=== PATIENT | male | born 1950 | race Hispanic/Latino ===

== ENCOUNTER 2019-05-12 17:54 | Inpatient (IN) | payer OTHER ==
[~2019-05-12] VITALS: Ht 162.6 cm; Wt 71.4 kg
[2019-05-12 21:04] VITALS: BP 162/73
[2019-05-12 21:51] LABS: HEMATOCRIT 40.2 % (42-54); MEAN CORPUSCULAR HEMOGLOBIN 30.2 pg (27.0-33.0); MEAN CORPUSCULAR HGB CONC 33.9 g/dL (32.0-36.0); MEAN CORPUSCULAR VOLUME 89.1 fL (79-99); PLATELET COUNT (AUTO) 189 K/uL (130-400); RED BLOOD CELL COUNT(AUTO) 4.51 MIL/uL (4.50-6.20); RED CELL DISTRIBUTION WIDTH 14.6 % (11.0-15.5); WHITE BLOOD COUNT (AUTO) 8.1 K/uL (4.8-10.8)
[2019-05-12 22:00] LABS: HEMOGLOBIN A1C 7.2 % (4.0-6.0)
[2019-05-12 22:06] LABS: INR 1.07 (0.85-1.15); PARTIAL THROMBOPLASTIN TIME 67.9 SEC (26.3-35.5); PROTHROMBIN TIME 11.2 SEC (9.6-11.6)
[2019-05-12 22:12] LABS: B-TYPE NATRIURETIC PEPTIDE 284 pg/mL (0-100)
[2019-05-12 22:14] LABS: ALBUMIN 3.1 g/dL (3.5-5.0); BILIRUBIN,TOTAL 0.4 mg/dL (0.2-1.0); CREATININE 0.9 mg/dL (0.5-1.5); POTASSIUM 3.8 mmol/L (3.5-5.1); TOTAL PROTEIN, SERUM 6.9 g/dL (6.0-8.3)
[2019-05-12] MEDS ORDERED: GLYB1TAB28 PO (22:30)
[2019-05-12] MEDS ORDERED: METO50TA18 PO (22:30)
[2019-05-12] MEDS ORDERED: ASPI-1005 PO (22:30)
[2019-05-12 22:37] LABS: APPEARANCE,URINE Clear (CLEAR); BILIRUBIN,URINE Negative (NEGATIVE); COLOR,URINE Yellow (YELLOW); GLUCOSE, URINE (UA) 250 mg/dL (NEGATIVE); KETONES,URINE Negative (NEGATIVE); LEUKOCYTE ESTERASE ,URINE Trace (NEGATIVE); NITRATE,URINE Negative (NEGATIVE); OCCULT BLOOD,URINE Negative (NEGATIVE); PH,URINE 6.5 (5.0-8.0); PROTEIN,URINE Negative (NEGATIVE)
[2019-05-12 22:54] LABS: BACTERIA,URINE None Seen /HPF (None Seen); RBC,URINE None Seen /HPF (0-1); SQUAMOUS EPITHELIAL CELL,UR Rare /HPF (0-2); WBC,URINE None Seen /HPF (0-1)
[2019-05-12 23:36] VITALS: BP 183/76
[2019-05-12] MEDS: LACTATED RINGERS 1000ML 1,000 ML IV SCH (23:36)
[2019-05-12] MEDS: NITROGLYCERIN 1GM/1 INCH PACKET TD SCH (23:36)
[2019-05-12] MEDS: CEFTRIAXONE SODIUM 1 GM IVP SCH (23:36)
[2019-05-13] VITALS (7 sets, daily range): BP systolic 117–173; BP diastolic 62–84
[2019-05-13] MEDS ORDERED: HYDRALAZINE HCL 20 MG/ML VIAL IV PRN
[2019-05-13] MEDS ORDERED: HYDRALAZINE HCL 20 MG/ML VIAL ONE (00:03)
[2019-05-13] MEDS ORDERED: GABA-529 PO (02:57)
[2019-05-13] MEDS ORDERED: LISI-613 PO (02:57)
[2019-05-13] MEDS ORDERED: ONDA220I IV (02:57)
[2019-05-13] MEDS ORDERED: PANT40TA25 PO (02:57)
[2019-05-13] MEDS ORDERED: [UNRECOGNIZED DRUG - CODE] IVP (02:57)
[2019-05-13] MEDS ORDERED: ACET-3194 PO (02:57)
[2019-05-13] MEDS: NITROGLYCERIN 1GM/1 INCH PACKET TD SCH ×4 (04:17→22:02)
[2019-05-13] MEDS ORDERED: NITROGLYCERIN 50 MG/D5% WATER 1 BOT ONE (08:52)
[2019-05-13] MEDS ORDERED: ACETAMINOPHEN 325 MG TAB PO PRN (10:30)
[2019-05-13 17:26] LABS: APPEARANCE,URINE CLEAR (CLEAR); BILIRUBIN,URINE NEGATIVE (NEGATIVE); COLOR,URINE YELLOW (YELLOW); GLUCOSE, URINE (UA) >=1000 mg/dL (NEGATIVE); KETONES,URINE NEGATIVE (NEGATIVE); LEUKOCYTE ESTERASE ,URINE NEGATIVE (NEGATIVE); NITRATE,URINE NEGATIVE (NEGATIVE); OCCULT BLOOD,URINE NEGATIVE (NEGATIVE); PH,URINE 6.5 (5.0-8.0); PROTEIN,URINE NEGATIVE (NEGATIVE); UROBILINOGEN,URINE 0.2 mg/dL (0.2-1.0)
[2019-05-13 18:05] LABS: BACTERIA,URINE Rare /HPF (None Seen); WBC,URINE 0-1 /HPF (0-1)
[2019-05-13 18:06] LABS: MUCUS,URINE None Seen LPF (None Seen); SQUAMOUS EPITHELIAL CELL,UR 0-2 /HPF (0-2)
[2019-05-13] MEDS: LACTATED RINGERS 1000ML 1,000 ML IV SCH (19:51)
[2019-05-13] MEDS: CEFTRIAXONE SODIUM 1 GM IVP SCH (22:01)
[2019-05-13] MEDS: INSULIN HUMULIN R 100 UNIT/ML 3ML SQ SCH (22:03)
[2019-05-13] MEDS ORDERED: MAGNESIUM CITRATE 296 ML SOLUTION PO ONE (23:15)
[2019-05-13] MEDS ORDERED: MAGNESIUM CITRATE 296 ML SOLUTION ONE (23:15)
[2019-05-14] VITALS (37 sets, daily range): BP systolic 86–193; BP diastolic 45–94
[2019-05-14] MEDS ORDERED: ONDANSETRON HCL 4 MG/2 ML VIAL ONE (01:59)
[2019-05-14] MEDS ORDERED: ONDANSETRON HCL 4 MG/2 ML VIAL IVP PRN (03:00)
--- NOTE | 2019-05-14 03:00 | NUR ---
Patient note: Patient very upset for not getting Ice chips after being placed on NPO after midnight for CABG procedure, States " I feel like dying". at bedside. Patient also upset after receiving a Magnesium Citrate prior to midnight due to constipation for past 6 days as per and [facility] report. Note: Successful bowel movement after Mag Citrate. Patient voicing wanting to leave AMA and not wanting to go through CABG surgery multiple times throughout the night. Calming and reassurance nursing measures perform for patient. Patient alert, stable, no distress noted.
[2019-05-14 03:26] LABS: CREATININE 0.8 mg/dL (0.5-1.5); POTASSIUM 3.7 mmol/L (3.5-5.1)
[2019-05-14 03:27] LABS: BASOPHILS % (AUTO) 0.9 % (0.0-5.0); EOSINOPHILS % (AUTO) 0.7 % (0.0-8.0); HEMATOCRIT 37.7 % (42-54); LYMPHOCYTES % (AUTO) 7.9 % (21.0-51.0); MEAN CORPUSCULAR HEMOGLOBIN 29.6 pg (27.0-33.0); MEAN CORPUSCULAR HGB CONC 33.1 g/dL (32.0-36.0); MEAN CORPUSCULAR VOLUME 89.5 fL (79-99); MONOCYTES % (AUTO) 7.8 % (3.0-13.0); NEUTROPHILS % (AUTO) 82.7 % (40.0-77.0); PLATELET COUNT (AUTO) 199 K/uL (130-400); RED BLOOD CELL COUNT(AUTO) 4.21 MIL/uL (4.50-6.20); RED CELL DISTRIBUTION WIDTH 14.5 % (11.0-15.5); WHITE BLOOD COUNT (AUTO) 9.2 K/uL (4.8-10.8)
[2019-05-14] MEDS: NITROGLYCERIN 1GM/1 INCH PACKET TD SCH ×3 (04:33→15:45)
[2019-05-14] MEDS: INSULIN HUMULIN R 100 UNIT/ML 3ML SQ SCH (06:26)
[2019-05-14] MEDS ORDERED: BACITRACIN 50,000 UNIT VIAL ONE (08:08)
[2019-05-14] MEDS ORDERED: PAPAVERINE HCL 30 MG/ML 2ML VIAL ONE (08:08)
[2019-05-14] MEDS ORDERED: MINERAL OIL 25 ML OIL TP ONE (08:08)
[2019-05-14] MEDS ORDERED: SODIUM BICARB 50MEQ 50ML VIAL ONE ×3 (08:30→14:31)
[2019-05-14] MEDS ORDERED: LIDOCAINE PF 2% 5ML ABBOJECT ONE (08:30)
[2019-05-14] MEDS ORDERED: PROPOFOL 10 MG/ML 20ML VIAL IV ONE (08:30)
[2019-05-14] MEDS ORDERED: NOREPINEPHRINE BITARTRATE 1 MG/1 ML ML IV ONE (08:30)
[2019-05-14] MEDS ORDERED: HEPARIN SODIUM 1000UNIT/ML 10ML VIAL ONE ×2 (08:30→09:49)
[2019-05-14] MEDS ORDERED: PROTAMINE SULFATE 10 MG/ML 25ML VIAL IV ONE (08:30)
[2019-05-14] MEDS ORDERED: AMINOCAPROIC ACID 250 MG/ML 20 ML VIAL IV ONE (08:30)
[2019-05-14] MEDS ORDERED: EPINEPHRINE 1 MG/ML AMPULE ONE (08:30)
[2019-05-14] MEDS ORDERED: ESMOLOL HCL 10 MG/ML 10 ML VIAL ONE ×2 (08:30→08:33)
[2019-05-14] MEDS ORDERED: FENTANYL CITRATE PF 50 MCG/1 ML 20ML VIAL IJ ONE (08:31)
[2019-05-14] MEDS ORDERED: ETOMIDATE 2 MG/ML 10 ML VIAL ONE (08:31)
[2019-05-14] MEDS ORDERED: MIDAZOLAM HCL 1 MG/ML 2ML VIAL ONE (08:31)
[2019-05-14] MEDS ORDERED: ROCURONIUM 10MG/1ML SYR 10 MG/ML ML ONE ×2 (08:31→11:17)
[2019-05-14] MEDS ORDERED: AMIODARONE HCL 50 MG/ML 3 ML VIAL ONE (08:33)
[2019-05-14 10:02] LABS: ABG BASE EXCESS -0.7 mmol/L (-2.0-3.0); ABG HCO3 21.2 mmol/L (21.0-28.0); ABG OXYGEN SATURATION 99.3 % (95.0-99.0); ABG PCO2 27 mmHg (35-48)
[2019-05-14] MEDS ORDERED: CEFAZOLIN SODIUM 1 GM VIAL ONE ×2 (10:08→13:04)
[2019-05-14 11:16] LABS: ABG BASE EXCESS -0.3 mmol/L (-2.0-3.0); ABG HCO3 22.7 mmol/L (21.0-28.0); ABG OXYGEN SATURATION 99.2 % (95.0-99.0); ABG PCO2 32 mmHg (35-48)
[2019-05-14] MEDS ORDERED: GLYCOPYRROLATE 1 MG/5 ML SYRINGE ONE (11:24)
[2019-05-14 12:42] LABS: ABG BASE EXCESS 5.1 mmol/L (-2.0-3.0); ABG OXYGEN SATURATION 98.9 % (95.0-99.0); ABG PCO2 35 mmHg (35-48)
[2019-05-14 13:10] LABS: ABG BASE EXCESS 0.9 mmol/L (-2.0-3.0); ABG HCO3 24.2 mmol/L (21.0-28.0); ABG OXYGEN SATURATION 98.8 % (95.0-99.0); ABG PCO2 34 mmHg (35-48)
--- NOTE | 2019-05-14 13:39 | NUR ---
ADMITTED O ROOM 213 AFTER CABG X 3, PT WAS ACCOMPANIED BY DR. ORTA AND OR STAFF PT WAS CONNECTED TO VENTILATOR ORDERED AND TO ADVERTISING MATERIAL DISTRIBUTOR. DRIPS PRESCRIBED AND SBP AT PRESENT HIGH AND PT HAS TRIDIL DRIP IN PLACE.N SEE PHYSICAL ASSESSMENT FOR LINES AND CHEST TUBES.
[2019-05-14] MEDS: LACTATED RINGERS 1000ML 1,000 ML IV SCH (13:45)
[2019-05-14 14:09] LABS: ABG BASE EXCESS -1.7 mmol/L (-2.0-3.0); ABG HCO3 23.4 mmol/L (21.0-28.0); ABG PCO2 41 mmHg (35-48)
[2019-05-14 14:30] LABS: HEMATOCRIT 34.2 % (42-54); MEAN CORPUSCULAR HEMOGLOBIN 30.2 pg (27.0-33.0); MEAN CORPUSCULAR HGB CONC 33.7 g/dL (32.0-36.0); MEAN CORPUSCULAR VOLUME 89.8 fL (79-99); NUCLEATED RED BLOOD CELLS 0.1 % (0.0-0.19); PLATELET COUNT (AUTO) 200 K/uL (130-400); RED BLOOD CELL COUNT(AUTO) 3.81 MIL/uL (4.50-6.20); RED CELL DISTRIBUTION WIDTH 14.6 % (11.0-15.5)
[2019-05-14 14:39] LABS: CREATININE 0.9 mg/dL (0.5-1.5); MAGNESIUM 2.4 mg/dL (1.80-2.40); POTASSIUM 3.7 mmol/L (3.5-5.1)
[2019-05-14] MEDS ORDERED: SODIUM CHLORIDE 0.9% 500ML 500 ML IV SCH (15:59)
[2019-05-14] MEDS ORDERED: ACETAMINOPHEN 650 MG SUPPOSITORY RC PRN (16:00)
[2019-05-14] MEDS ORDERED: INSULIN REGULAR, HUMAN 3ML 100 UNIT in SODIUM CHLORIDE 0.9% 99 ML IV SCH ×2 (16:00)
[2019-05-14] MEDS ORDERED: MORPHINE SULFATE 4 MG/1ML SYG IV PRN (16:00)
[2019-05-14] MEDS ORDERED: GLUCAGON 1MG KIT 1 MG ML IM PRN (16:00)
[2019-05-14] MEDS ORDERED: ALBUMIN (HUMAN) 5% 250 ML IV PRN (16:00)
[2019-05-14] MEDS ORDERED: DEXTROSE 50%-WATER 50 ML DISP.SYRIN IV PRN (16:00)
[2019-05-14] MEDS ORDERED: SODIUM CHLORIDE 0.9% 10 ML VIAL IVP PRN (16:00)
[2019-05-14] MEDS ORDERED: PROPOFOL 1000 MG/100 ML 100 ML IV PRN (16:00)
[2019-05-14] MEDS ORDERED: SODIUM CHLORIDE 0.9% 250 ML IV PRN (16:00)
[2019-05-14] MEDS ORDERED: MORPHINE SULFATE 2 MG/ML 1ML SYG IV PRN (16:00)
[2019-05-14] MEDS ORDERED: EPINEPHRINE 2 MG in DEXTROSE 5%-WATER 250 ML IV PRN (16:00)
[2019-05-14] MEDS ORDERED: NOREPINEPHRINE 4MG/NS 250ML 250 ML IV PRN (16:00)
[2019-05-14] MEDS ORDERED: POTASSIUM PHOS 15 mMOL+NS250ML 250 ML IV PRN (16:00)
[2019-05-14] MEDS ORDERED: MAGNESIUM 2GM PREMIX 50ML 50 ML IV PRN (16:00)
[2019-05-14] MEDS ORDERED: SODIUM BICARB 50MEQ 50ML VIAL IV PRN (16:00)
[2019-05-14] MEDS ORDERED: NITROGLYCERIN 50 MG/D5% WATER 250 BOT IV SCH (16:00)
[2019-05-14] MEDS ORDERED: SODIUM CHLORIDE 0.9% 1000ML 1,000 ML IV SCH (16:00)
[2019-05-14] MEDS ORDERED: CALCIUM GLUCONATE 1 GM in SODIUM CHLORIDE 0.9% 50 ML IV PRN (16:00)
[2019-05-14 16:02] LABS: INR 1.09 (0.85-1.15); PROTHROMBIN TIME 11.2 SEC (9.6-11.6)
[2019-05-14 16:54] LABS: ABG BASE EXCESS 1.7 mmol/L (-2.0-3.0); ABG HCO3 25.5 mmol/L (21.0-28.0); ABG OXYGEN SATURATION 97.4 % (95.0-99.0); ABG PCO2 37 mmHg (35-48)
[2019-05-14] MEDS: POTASSIUM CHLORIDE 20MEQ/100ML 100 ML IV PRN ×3 (17:10→20:30)
--- NOTE | 2019-05-14 18:00 | NUR ---
DR. THORPE CALLED FOR SECOND TIME TO CHECK ON PATIENT AND ADVISED OF PT'S V/S AND HEART RATE. PT WAS ALSO STARTED ON EPI DRIP AT 0.03 MCG/KG/MIN AND DR. THORPE NOTIFIED. PT'S HEART RATE HAS SLOWED DOWN TO THE 90'S AND LOW 100'S TRIDIL DRIP AT 20MCGS AND RESP. RATE DOWN TO 8 AT PRESENT AND PT HAS BEEN ABLE TO FOLLOW COMMANDS WITH EXTREMITIES THAT FAMILY MEMBERS STATED THAT HE WAS ABLE TO USE.
[2019-05-14 19:48] LABS: ABG BASE EXCESS 3.8 mmol/L (-2.0-3.0); ABG PCO2 36 mmHg (35-48)
[2019-05-14] MEDS: CEFAZOLIN SODIUM 1 GM VIAL IV SCH (20:30)
[2019-05-14] MEDS: FAMOTIDINE/PF 20 MG/2 ML VIAL IV SCH (20:32)
[2019-05-14 20:53] LABS: ABG BASE EXCESS 3.2 mmol/L (-2.0-3.0); ABG HCO3 25.6 mmol/L (21.0-28.0); ABG OXYGEN SATURATION 95.4 % (95.0-99.0); ABG PCO2 33 mmHg (35-48)
[2019-05-14 21:43] LABS: ABG BASE EXCESS 4.7 mmol/L (-2.0-3.0); ABG HCO3 27.5 mmol/L (21.0-28.0); ABG OXYGEN SATURATION 96.7 % (95.0-99.0); ABG PCO2 35 mmHg (35-48)
--- NOTE | 2019-05-14 21:52 | NUR ---
EXTUBATE Dr. Marin called for abnormal ABG that was 7.51 pH. Patient passes all ventilator weaning trials and is alert and awake. MD is comfortable extubating on this pH and mentioned the need for an aerosol mask prn for pO2. Dr. Marin was also made aware of patient going into sinus tachycardia and 5 second VT, and then dropping back to sinus rhythm. No new orders for this finding at this time.
[2019-05-14 22:05] LABS: MAGNESIUM 2.3 mg/dL (1.80-2.40)
--- NOTE | 2019-05-14 22:13 | NUR ---
EXTUBATED PATIENT 2158 to 40% aerosol mask. Tolerated procedure well.
[2019-05-14 23:19] LABS: ABG BASE EXCESS 3.9 mmol/L (-2.0-3.0); ABG HCO3 27.5 mmol/L (21.0-28.0); ABG OXYGEN SATURATION 95.8 % (95.0-99.0); ABG PCO2 38 mmHg (35-48)
[2019-05-15] VITALS (56 sets, daily range): BP systolic 99–188; BP diastolic 35–219
[2019-05-15] MEDS: TRAMADOL HCL 50 MG TABLET PO PRN ×3 (00:02→13:13)
--- NOTE | 2019-05-15 01:31 | NUR ---
Patient upset that he was unable to drink water immediately post extubation. It was explained to him that he needs to cooperate and advance liquids slowly for his benefit; he got more angry. Patient threatened to pull out all his lines and chest tubes and leave if he was not able to drink water. Patient eventually relaxed and liquids are being advanced slowly. Patient does present angry at times, but has improved.
--- NOTE | 2019-05-15 03:00 | NUR ---
Patient noncompliant with cares Patient was given ice chips off through the night, along with sips of water. Patient took off his aerosol mask and would not put it back on, was angry because he wanted more water, even though he was nauseous. Patient was explained to multiple times the reason for taking small amounts of intake, but patient disregarded information.
[2019-05-15] MEDS: ONDANSETRON HCL 4 MG/2 ML VIAL IV PRN ×2 (03:16→07:49)
[2019-05-15 03:44] LABS: BASOPHILS % (AUTO) 0.5 % (0.0-5.0); HEMATOCRIT 32.9 % (42-54); LYMPHOCYTES % (AUTO) 7.4 % (21.0-51.0); MEAN CORPUSCULAR HGB CONC 34.2 g/dL (32.0-36.0); MEAN CORPUSCULAR VOLUME 87.7 fL (79-99); MONOCYTES % (AUTO) 13.8 % (3.0-13.0); NEUTROPHILS % (AUTO) 78.3 % (40.0-77.0); NUCLEATED RED BLOOD CELLS 0.1 % (0.0-0.19); PLATELET COUNT (AUTO) 192 K/uL (130-400); RED BLOOD CELL COUNT(AUTO) 3.75 MIL/uL (4.50-6.20); RED CELL DISTRIBUTION WIDTH 14.7 % (11.0-15.5)
[2019-05-15 03:50] LABS: CREATININE 0.9 mg/dL (0.5-1.5); MAGNESIUM 2.2 mg/dL (1.80-2.40); PHOSPHORUS 2.8 mg/dL (2.5-4.9); POTASSIUM 4.3 mmol/L (3.5-5.1)
[2019-05-15 04:57] LABS: ABG BASE EXCESS 4.6 mmol/L (-2.0-3.0); ABG HCO3 28.8 mmol/L (21.0-28.0); ABG OXYGEN SATURATION 96.4 % (95.0-99.0); ABG PCO2 41 mmHg (35-48)
[2019-05-15] MEDS ORDERED: CALCIUM GLUCONATE 1 GM/10 ML VIAL IV ONE (05:05)
[2019-05-15] MEDS: CEFAZOLIN SODIUM 1 GM VIAL IV SCH ×2 (05:06→12:15)
--- NOTE | 2019-05-15 07:30 | NUR ---
PT WAS ASSESSED AND SEE DOCUMENTATION OF PHYSICAL ASSESSMENT.
[2019-05-15] MEDS: ACETAMINOPHEN 325 MG TAB PO PRN ×2 (07:43→19:42)
[2019-05-15] MEDS: FAMOTIDINE/PF 20 MG/2 ML VIAL IV SCH ×2 (07:43→20:02)
--- NOTE | 2019-05-15 09:30 | NUR ---
DR. THORPE HERE AND ORDERS NOTED UPDATED ON DRIPS AND OUTPUT FROM URINE AND CT OUTPUTS.
[2019-05-15] MEDS: ASPIRIN 325MG EC TAB 325 MG TABLET.DR PO SCH (10:15)
[2019-05-15] MEDS: METOPROLOL TARTRATE 25 MG TAB PO SCH ×2 (10:15→20:02)
--- NOTE | 2019-05-15 11:30 | NUR ---
DR. PAUL HERE AND ORDER NOTED.
[2019-05-15] MEDS: SIMETHICONE 80 MG TAB.CHEW PO SCH ×2 (12:14→17:10)
[2019-05-15] MEDS: METOCLOPRAMIDE 10 MG/2 ML VIAL IVP SCH ×3 (12:15→20:02)
--- NOTE | 2019-05-15 12:30 | NUR ---
TRIDIL IP WAS DC'D AND WILL CONTINUE TO MONITER SBP.
--- NOTE | 2019-05-15 14:00 | NUR ---
PT HAS BEEN YELLING AND WANTING WATER AND/OR ICE. PT HAS BEEN ASKED TO BE MORE CALM BUT DUE TO HIS BLINDNESS HE IS UNABLE TO REASON WITH NURSING STAFF AND UNDERSTAND THE TIME OF DAY.
--- NOTE | 2019-05-15 16:15 | NUR ---
PT HAS HAD EPI DRIP WEANED AND SBP AND HEART RATE HAS REMAI STABLE.
[2019-05-15] MEDS: FUROSEMIDE 20 MG TABLET PO SCH (17:10)
--- NOTE | 2019-05-15 18:06 | NUR ---
PT HAS BEEN ADVISED OF FLUID INTAKE AND FAMILY AWARE OF FLUIDS NEEDING TO BE MONITORED.
[2019-05-15] MEDS: ATORVASTATIN CALCIUM 40 MG TABLET PO SCH (20:02)
[2019-05-16] VITALS (24 sets, daily range): BP systolic 101–169; BP diastolic 45–100
[2019-05-16] MEDS: SIMETHICONE 80 MG TAB.CHEW PO SCH ×3 (03:36→22:17)
[2019-05-16 03:52] LABS: HEMATOCRIT 29.1 % (42-54); MEAN CORPUSCULAR HEMOGLOBIN 29.8 pg (27.0-33.0); MEAN CORPUSCULAR HGB CONC 33.4 g/dL (32.0-36.0); MEAN CORPUSCULAR VOLUME 89.4 fL (79-99); PLATELET COUNT (AUTO) 149 K/uL (130-400); RED BLOOD CELL COUNT(AUTO) 3.26 MIL/uL (4.50-6.20); RED CELL DISTRIBUTION WIDTH 14.8 % (11.0-15.5); WHITE BLOOD COUNT (AUTO) 11.8 K/uL (4.8-10.8)
[2019-05-16 04:00] LABS: POTASSIUM 4.5 mmol/L (3.5-5.1)
[2019-05-16] MEDS: TRAMADOL HCL 50 MG TABLET PO PRN ×2 (05:46→11:33)
--- NOTE | 2019-05-16 07:00 | NUR ---
PATIENT SCREAMING THAT HE NEEDS WATER REPEATEDLY IN UZBEK. ASLEEP IN CHAIR
[2019-05-16] MEDS: FUROSEMIDE 20 MG TABLET PO SCH ×2 (07:42→17:20)
[2019-05-16] MEDS: ASPIRIN 325MG EC TAB 325 MG TABLET.DR PO SCH (07:42)
[2019-05-16] MEDS: FAMOTIDINE/PF 20 MG/2 ML VIAL IV SCH ×2 (07:42→22:12)
[2019-05-16] MEDS: METOCLOPRAMIDE 10 MG/2 ML VIAL IVP SCH ×4 (07:42→22:12)
[2019-05-16] MEDS: METOPROLOL TARTRATE 25 MG TAB PO SCH ×2 (07:42→22:12)
--- NOTE | 2019-05-16 09:00 | NUR ---
PATIENT CONTINUES TO RANDOMLY SCREAM FOR WATER DESPITE BEING AT BEDSIDE AND HOLDING HIS HAND. PATIENT ALSO STATES THAT HE IS IN PAIN TO HIS LEG AND CHEST HOWEVER PATIENT INTERMITTENTLY FALLS ASLEEP.
[2019-05-16] MEDS: ONDANSETRON HCL 4 MG/2 ML VIAL IV PRN (09:05)
[2019-05-16] MEDS ORDERED: BISACODYL 10 MG SUPP.RECT RC SCH (13:00)
[2019-05-16] MEDS: ACETAMINOPHEN 325 MG TAB PO PRN (14:44)
--- NOTE | 2019-05-16 16:00 | NUR ---
NITROGLYCERIN DRIP STARTED DUE TO PATIENT NOW SCREAMING THAT HIS CHEST HURTS. PATIENT CONTINUES TO FALL ASLEEP AND WAKE UP SCREAMING. PATIENT REPEATEDLY ASKS FOR HIS . PATIENT HAS BEEN MEDICATED WITH BOTH TRAMADOL AND TYLENOL ORDERED. WILL CONTINUE TO MONITOR BP AND ASSESS FOR CHEST PAIN.
[2019-05-16] MEDS: INSULIN HUMULIN R 100 UNIT/ML 3ML SQ SCH ×2 (17:00→21:00)
--- NOTE | 2019-05-16 19:00 | NUR ---
Assumed care at 1900. Patient in no apparent distress. Patient has been yelling loudly for water/ice. Patient is yelling loudly for spouse at bedside. Patient has been educated repeatedly about fluid intake and to lower his voice. Patient is not compliant with request. Please see physical assessment for further detail. Will continue to monitor.
[2019-05-16] MEDS ORDERED: FUROSEMIDE 10 MG/ML 4ML VIAL IV ONE (21:00)
[2019-05-16] MEDS ORDERED: GABAPENTIN 100 MG CAPSULE PO SCH (21:00)
[2019-05-16] MEDS: ATORVASTATIN CALCIUM 40 MG TABLET PO SCH (22:12)
[2019-05-16] MEDS: GABAPENTIN 100 MG CAPSULE PO SCH (22:12)
[2019-05-17 03:38] VITALS: BP 131/50
[2019-05-17] MEDS: SIMETHICONE 80 MG TAB.CHEW PO SCH ×3 (03:55→20:37)
[2019-05-17 03:58] LABS: HEMATOCRIT 31.1 % (42-54); MEAN CORPUSCULAR HEMOGLOBIN 30.2 pg (27.0-33.0); MEAN CORPUSCULAR HGB CONC 33.6 g/dL (32.0-36.0); MEAN CORPUSCULAR VOLUME 90.1 fL (79-99); PLATELET COUNT (AUTO) 170 K/uL (130-400); RED BLOOD CELL COUNT(AUTO) 3.46 MIL/uL (4.50-6.20); RED CELL DISTRIBUTION WIDTH 14.2 % (11.0-15.5); WHITE BLOOD COUNT (AUTO) 10.6 K/uL (4.8-10.8)
[2019-05-17] MEDS: INSULIN HUMULIN R 100 UNIT/ML 3ML SQ SCH ×4 (06:18→20:37)
[2019-05-17 07:00] VITALS: BP 148/68
[2019-05-17] MEDS: FAMOTIDINE/PF 20 MG/2 ML VIAL IV SCH ×2 (09:35→20:37)
[2019-05-17] MEDS: METOCLOPRAMIDE 10 MG/2 ML VIAL IVP SCH ×2 (09:35→12:01)
[2019-05-17] MEDS: FUROSEMIDE 20 MG TABLET PO SCH ×2 (09:35→16:11)
[2019-05-17] MEDS: METOPROLOL TARTRATE 25 MG TAB PO SCH ×2 (09:36→20:37)
[2019-05-17] MEDS: ASPIRIN 325MG EC TAB 325 MG TABLET.DR PO SCH (09:36)
[2019-05-17 11:08] VITALS: BP 112/55
[2019-05-17] MEDS: TRAMADOL HCL 50 MG TABLET PO PRN (11:11)
[2019-05-17 16:00] VITALS: BP 140/81
--- NOTE | 2019-05-17 17:31 | NUR ---
Nutrition Intervention: Nutrition screen based on LOS x 5 days. Pt. S/P CABG(05/14/19). Pt. / family member asleep during RD visit. Pt. on 75gm CCD Heart Healthy diet with 0-25% p.o.intake as noted in EMR. Labs reviewed(Alb 3.1, CHOL 217, LDL CHOL 122, HgbA1c 7.2%). SR-12, chest incision. BMI: 32.1, Obesity Grade 1. Recommendations: 1) Rec. Glucerna QD with B'fast meal due to poor p.o. intake. 2) Continue to monitor pt's nutritional status. 3) Consult RD as nutrition concerns arise. Addendum: 05/17/19 at [address] Amended: Links added.
[2019-05-17 19:24] VITALS: BP 148/83
--- NOTE | 2019-05-17 19:25 | NUR ---
ASSESSMENT PATIENT IS RESTING BED. ALERT AND ORIENTED X3. IS LEGALLY BLIND. FAMILY IS AT BEDSIDE. PATIENT IS DEMANDING AND AGGRESSIVE BUT REINFORCED TO COMPLY WITH NURSING INSTRUCTIONS. NO COMPLAINTS OF PAIN AT THIS TIME. NO SIGNS OF DISTRESS. NO SHORTNESS OF BREATH. CHRONIC GARRISON CATHETER IS IN PLACE AND AT BEDSIDE AND IS PATENT AND IS FREE FLOW DRAINING. CHEST TUBES X3 WITH [address] AND ARE PATENT AND FLOWING. PATIENT MADE COMFORTABLE IN BED. CALL LIGHT AND BEDSIDE TABLE WITHIN REACH. REINFORCED TO CALL NURSE FOR ANY NEEDS. INSTRUCTED TO REFRAIN FROM YELLING MUCH POSSIBLE AND REINFORCED USE OF CALL LIGHT. NO QUESTIONS, CONCERNS, OR NEEDS AT THIS TIME.
[2019-05-17] MEDS: ATORVASTATIN CALCIUM 40 MG TABLET PO SCH (20:37)
[2019-05-17] MEDS: GABAPENTIN 100 MG CAPSULE PO SCH (20:37)
[2019-05-17 23:15] VITALS: BP 135/62
[2019-05-18] MEDS: TRAMADOL HCL 50 MG TABLET PO PRN ×4 (02:32→20:48)
[2019-05-18 04:00] VITALS: BP 130/63
[2019-05-18 04:01] LABS: HEMATOCRIT 31.2 % (42-54); MEAN CORPUSCULAR HEMOGLOBIN 29.8 pg (27.0-33.0); MEAN CORPUSCULAR HGB CONC 33.5 g/dL (32.0-36.0); MEAN CORPUSCULAR VOLUME 89.1 fL (79-99); NUCLEATED RED BLOOD CELLS 0.1 % (0.0-0.19); PLATELET COUNT (AUTO) 191 K/uL (130-400); RED BLOOD CELL COUNT(AUTO) 3.51 MIL/uL (4.50-6.20); RED CELL DISTRIBUTION WIDTH 14.2 % (11.0-15.5); WHITE BLOOD COUNT (AUTO) 8.3 K/uL (4.8-10.8)
[2019-05-18 04:09] LABS: CREATININE 0.8 mg/dL (0.5-1.5); MAGNESIUM 2.1 mg/dL (1.80-2.40); POTASSIUM 3.4 mmol/L (3.5-5.1)
[2019-05-18] MEDS ORDERED: POTASSIUM CHLORIDE 10% ELIXIR 20 MEQ/15 ML UDCUP PO PRN (05:15)
[2019-05-18] MEDS: INSULIN HUMULIN R 100 UNIT/ML 3ML SQ SCH ×4 (05:46→21:00)
[2019-05-18] MEDS: SIMETHICONE 80 MG TAB.CHEW PO SCH ×3 (06:47→20:44)
[2019-05-18] MEDS: POTASSIUM CHLORIDE 20 MEQ ERTAB PO PRN ×2 (06:48→09:02)
[2019-05-18 07:27] VITALS: BP 146/70
[2019-05-18] MEDS: FAMOTIDINE 20MG TAB 20 MG TAB PO SCH ×2 (09:02→21:00)
[2019-05-18] MEDS: METOPROLOL TARTRATE 25 MG TAB PO SCH ×2 (09:03→20:44)
[2019-05-18] MEDS: ASPIRIN 325MG EC TAB 325 MG TABLET.DR PO SCH (09:03)
[2019-05-18] MEDS: FUROSEMIDE 20 MG TABLET PO SCH ×2 (09:13→16:14)
[2019-05-18 11:41] VITALS: BP 135/69
[2019-05-18 15:32] VITALS: BP 128/68
[2019-05-18] MEDS: ACETAMINOPHEN 325 MG TAB PO PRN (16:19)
[2019-05-18 19:01] VITALS: BP 182/69
[2019-05-18] MEDS: ATORVASTATIN CALCIUM 40 MG TABLET PO SCH (20:43)
[2019-05-18] MEDS: GABAPENTIN 100 MG CAPSULE PO SCH (20:43)
--- NOTE | 2019-05-18 21:00 | NUR ---
pt with spasm like pain to right lower ext
[2019-05-18 23:25] VITALS: BP 125/52
[2019-05-19 03:35] VITALS: BP 141/79
[2019-05-19] MEDS: SIMETHICONE 80 MG TAB.CHEW PO SCH ×3 (03:46→20:43)
[2019-05-19] MEDS: TRAMADOL HCL 50 MG TABLET PO PRN ×4 (03:46→20:44)
[2019-05-19] MEDS: INSULIN HUMULIN R 100 UNIT/ML 3ML SQ SCH ×4 (05:48→20:39)
[2019-05-19 07:32] VITALS: BP 156/77
[2019-05-19] MEDS: METOPROLOL TARTRATE 25 MG TAB PO SCH ×2 (08:28→20:44)
[2019-05-19] MEDS: ASPIRIN 325MG EC TAB 325 MG TABLET.DR PO SCH (08:29)
[2019-05-19] MEDS: FAMOTIDINE 20MG TAB 20 MG TAB PO SCH ×2 (08:29→20:43)
[2019-05-19] MEDS: FUROSEMIDE 20 MG TABLET PO SCH ×2 (08:29→16:29)
[2019-05-19 11:32] VITALS: BP 150/78
[2019-05-19 15:16] VITALS: BP 146/82
[2019-05-19 18:54] VITALS: BP 143/75
[2019-05-19] MEDS: GABAPENTIN 100 MG CAPSULE PO SCH (20:43)
[2019-05-19] MEDS: ATORVASTATIN CALCIUM 40 MG TABLET PO SCH (20:43)
[2019-05-19 23:45] VITALS: BP 131/77
[2019-05-20 03:09] VITALS: BP 120/67
[2019-05-20] MEDS: TRAMADOL HCL 50 MG TABLET PO PRN (03:12)
--- NOTE | 2019-05-20 05:29 | NUR ---
right IJ cordis discontinued, pt tolerated procedure well. no bleeding noted
[2019-05-20] MEDS: SIMETHICONE 80 MG TAB.CHEW PO SCH ×3 (05:32→19:45)
[2019-05-20] MEDS: INSULIN HUMULIN R 100 UNIT/ML 3ML SQ SCH ×3 (06:38→15:51)
[2019-05-20 07:15] VITALS: BP 167/70
[2019-05-20] MEDS: FAMOTIDINE 20MG TAB 20 MG TAB PO SCH (10:33)
[2019-05-20] MEDS: ASPIRIN 325MG EC TAB 325 MG TABLET.DR PO SCH (10:33)
[2019-05-20] MEDS: FUROSEMIDE 20 MG TABLET PO SCH ×2 (10:33→16:28)
[2019-05-20] MEDS: METOPROLOL TARTRATE 25 MG TAB PO SCH (10:33)
[2019-05-20] MEDS: POTASSIUM CHLORIDE 20 MEQ ERTAB PO PRN ×2 (10:34→16:28)
[2019-05-20 11:11] VITALS: BP 176/78
[2019-05-20 14:56] VITALS: BP 140/66
--- NOTE | 2019-05-20 15:17 | NUR ---
RD NOTIFICATION/ FOLLOW UP DIET: HEART HEALTHY/ 75GMCCD, GLUCERNA QD. PO INTAKE 25-50%, APPETITE IS IMPROVING PER . STATED PT EATS MORE THAN ENOUGH AT HOME, COOKS FOR HIM AND DOES NOT FOLLOW ANY SPECIFIC DIET. WAS CONCERNED FOR PT AND ASKED FOR DIETARY RECOMMENDATIONS. RD PROVIDED DM AND HEART HEALTHY DIET AND NUTRITION EDUCATION. ASKED QUESTIONS, RD ANSWERED AND VERBALIZED UNDERSTANDING. EDUCATION MATERIALS PROVIDED. RD RECOMMENDS CONTINUE CURRENT DIET. RD PROVIDED DM AND HEART HEALTHY MEDICAL NUTRITION THERAPY. RD WILL MONITOR AND FOLLOW UP NEEDED. LILY BANEGAS MS, RDN Addendum: 05/20/19 at [address] RD Amended: Links added.
--- NOTE | 2019-05-20 15:19 | NUR ---
DIET EDUCATION APPETITE IS IMPROVING PER . STATED PT EATS MORE THAN ENOUGH AT HOME, COOKS FOR HIM AND DOES NOT FOLLOW ANY SPECIFIC DIET. WAS CONCERNED FOR PT AND ASKED FOR DIETARY RECOMMENDATIONS. RD PROVIDED DM AND HEART HEALTHY DIET AND NUTRITION EDUCATION. ASKED QUESTIONS, RD ANSWERED AND VERBALIZED UNDERSTANDING. EDUCATION MATERIALS PROVIDED. Addendum: 05/20/19 at [address] RD Amended: Links added.
--- NOTE | 2019-05-20 16:50 | NUR ---
PATIENT REQUESTED FLU VACCINE ON ADMISSION HOWEVER CHANGED HIS MIND AT DISCHARGE. NO VACCINE WAS ADMINISTERED THIS ADMISSION. Addendum: 05/20/19 at 1651 by SOHAIL MADRIGAL RN RN Amended: Links added.
[2019-05-20] MEDS ORDERED: FURO20TA6 PO (17:22)
[2019-05-20] MEDS ORDERED: ASPI-891 PO (17:22)
[2019-05-20] MEDS ORDERED: ATOR40TA69 PO (17:22)
[2019-05-20] MEDS ORDERED: METO25 PO (17:22)
--- NOTE | 2019-05-20 17:45 | NUR ---
cm note called by nurse for plans for dc today, spouse requesting EMS transport, call made to Jenny clifford CM director, informed pt bedbound, polio. s/p caBG, unable to sit, she has approved for EMS to transport pt to home. in [place], [place]. updated. primary nurse lily. spoke to [facility] chris and updated on above. informed that per nurse. pt ready to be picked up. verbalizes understanding.
[2019-05-20 20:00] VITALS: BP 156/84
== END 2019-05-20 18:30 | disposition home or self-care (01) | DRG 236 ==
LOC: UNDOADMIN 17:54 → 2AH 17:54 → 2CV 05-14 12:03 → 2BH 05-15 05:56 → 2DH 05-17 23:57
PROVIDERS: ADMIT Internal Medicine Pulmonary Disease; ATTEND Internal Medicine Pulmonary Disease
PROC: 021109W Bypass Coronary Artery, Two Arteries from Aorta with Autologous Venous Tissue, Open Approach (ICD-10-PCS; 2019-05-14)
PROC: 02HP32Z Insertion of Monitoring Device into Pulmonary Trunk, Percutaneous Approach (ICD-10-PCS; 2019-05-14)
PROC: 06BQ4ZZ Excision of Left Saphenous Vein, Percutaneous Endoscopic Approach (ICD-10-PCS; principal; 2019-05-14 09:26)
PROC: 02100Z9 Bypass Coronary Artery, One Artery from Left Internal Mammary, Open Approach (ICD-10-PCS; 2019-05-14 09:26)
PROC: 06BP4ZZ Excision of Right Saphenous Vein, Percutaneous Endoscopic Approach (ICD-10-PCS; 2019-05-14 09:26)
DX: I21.4 Non-ST elevation (NSTEMI) myocardial infarction (principal); I47.1 Supraventricular tachycardia; J98.11 Atelectasis; G81.90 Hemiplegia, unspecified affecting unspecified side; G82.20 Paraplegia, unspecified; I25.110 Atherosclerotic heart disease of native coronary artery with unstable angina pectoris; A80.9 Acute poliomyelitis, unspecified; E66.9 Obesity, unspecified; E78.00 Pure hypercholesterolemia, unspecified; K27.9 Peptic ulcer, site unspecified, unspecified as acute or chronic, without hemorrhage or perforation; E78.1 Pure hyperglyceridemia; E78.5 Hyperlipidemia, unspecified; H54.8 Legal blindness, as defined in USA; I10 Essential (primary) hypertension; Z74.01 Bed confinement status; Z86.12 Personal history of poliomyelitis; Z91.19 Patient's noncompliance with other medical treatment and regimen; Z68.27 Body mass index [BMI] 27.0-27.9, adult; Z79.899 Other long term (current) drug therapy; Z99.3 Dependence on wheelchair
CPT/HCPCS: 36415; 36600; 71045; 80048; 80053; 80061; 81001; 82330; 82435; 82550; 82803; 82947; 82948; 83036; 83605; 83735; 83880; 84100; 84132; 84295; 84484; 85018; 85025; 85027; 85347; 85610; 85730; 86850; 86900; 86901; 86922; 87088; 93005; 93880; 94002; 94010; 94150; 97039; A7048; G0378; J0171; J0282; J0360; J0610; J0690; J0696; J1644; J1815; J1940; J2001; J2250; J2270; J2405; J2440; J2704; J2720; J2765; J3010; J3480; J3490; J7030; J7040; J7120